=== PATIENT | male | born 1940 | race Caucasian/White ===

== ENCOUNTER 2020-03-18 09:55 | Inpatient (IN) | payer MEDICARE, MEDICAID ==
[~2020-03-18] VITALS: Ht 167.6 cm; Wt 64.9 kg
--- NOTE | 2020-03-18 10:00 | NUR ---
[id number] frm B&C c/o sudden onset chest pain 1 hour ago. asp 325 and nitro x 2 given fire captain. pt c/o lower back pain. bg 88 fire captain. On room air, breathing evenly and unlabored. connected to the monitor and pulse ox. kept comfortable, will continue to monitor accordingly.
[2020-03-18] MEDS ORDERED: HYDROMORPHONE 1 MG/1 ML DISP.SYRIN ONE (10:09)
[2020-03-18] MEDS ORDERED: ONDANSETRON HCL/PF 4 MG/2 ML VIAL ONE (10:09)
[2020-03-18 10:23] LABS: BASOPHILS # (AUTO) 0.1 /CMM (0.0-0.2); BASOPHILS % (AUTO) 1.1 % (0.0-2.0); EOSINOPHILS % (AUTO) 5.6 % (0.0-6.0); HEMATOCRIT 41 % (39-51); HEMOGLOBIN 13.4 g/dL (13.5-17.5); LYMPHOCYTES # (AUTO) 2.1 /CMM (0.8-4.8); LYMPHOCYTES % (AUTO) 30.9 % (20.0-44.0); MEAN CORPUSCULAR HGB CONC 33 g/dl (31.0-36.0); MEAN CORPUSCULAR VOLUME 91 fL (80-96); MONOCYTES # (AUTO) 0.6 /CMM (0.1-1.30); MONOCYTES % (AUTO) 8.6 % (2.0-12.0); NEUTROPHILS # (AUTO) 3.6 /CMM (1.8-8.9); NEUTROPHILS % (AUTO) 53.8 % (43.0-81.0); PLATELET COUNT (AUTO) 209 /CMM (150-450); RED BLOOD CELL COUNT(AUTO) 4.52 MIL/uL (4.5-6.0); WHITE BLOOD COUNT (AUTO) 6.7 K/uL (4.3-11.0)
[2020-03-18] MEDS ORDERED: HYDROMORPHONE INJ 2 MG/ML DISP.SYRIN IV ONE (10:30)
[2020-03-18] MEDS ORDERED: ONDANSETRON HCL/PF 4 MG/2 ML VIAL IVP ONE (10:30)
--- NOTE | 2020-03-18 10:31 | NUR ---
covid 19 swab collected and sent to lab
[2020-03-18] MEDS ORDERED: DONE10TA44 MT (10:41)
[2020-03-18] MEDS ORDERED: GABA300C PO (10:41)
[2020-03-18] MEDS ORDERED: MEMA5TAB42 MT (10:41)
[2020-03-18] MEDS ORDERED: APIX5TAB MT (10:41)
[2020-03-18] MEDS ORDERED: LISI40TA4 MT (10:41)
[2020-03-18 10:48] LABS: CALCIUM, SERUM 8.1 mg/dL (8.5-10.1); CARBON DIOXIDE 23 mmol/L (21-32); CHLORIDE 105 mmol/L (98-107); CREATININE 1.5 mg/dL (0.6-1.3); GLUCOSE 110 mg/dL (74-106); POTASSIUM 3.8 mmol/L (3.5-5.1); SODIUM SERUM 139 mmol/L (136-145); UREA NITROGEN, BLOOD 14 mg/dL (7-18)
[2020-03-18 10:54] LABS: ALANINE AMINOTRANSFERASE 10 U/L (12-78); ALBUMIN 3.1 g/dL (3.4-5.0); ALKALINE PHOSPHATASE 67 U/L (46-116); ASPARTATE AMINOTRANSFERASE 19 U/L (15-37); BILIRUBIN,DIRECT 0.1 mg/dL (0.0-0.2); BILIRUBIN,TOTAL 0.5 mg/dL (0.2-1.0); TOTAL PROTEIN, SERUM 6.9 g/dL (6.4-8.2)
--- NOTE | 2020-03-18 10:58 | NUR ---
PANEL ON-CALL PAGED
[2020-03-18] MEDS ORDERED: ONDANSETRON HCL/PF 4 MG/2 ML VIAL IVP PRN (11:30)
[2020-03-18] MEDS ORDERED: MAGNESIUM HYDROXIDE 30 ML UDC PO PRN (11:30)
[2020-03-18] MEDS ORDERED: ACETAMINOPHEN 325 MG TABLET PO PRN (11:30)
[2020-03-18] MEDS ORDERED: ZOLPIDEM TARTRATE 5 MG TABLET PO PRN (11:30)
--- NOTE | 2020-03-18 11:35 | NUR ---
report given to nurse Thomas for daniel.
[2020-03-18 12:00] VITALS: BP_SYST 175; BP_SYST 183; BP_DIAS 89; BP_DIAS 96
--- NOTE | 2020-03-18 12:00 | NUR ---
tele tumbler drier operator: admission admitted this 79 year old male pt from [facility] with dx: r/o acs. awake, a/ox3, easily irritated and gets emotionally. pt also threatened to leave the hospital if he can't get a back brace right away, informed pt that i will let the hospitalist know about his concerns. oriented to room and surroundings. place pt on tele v pacing, if not pacing sr with inverted t wave=62-66. c/o back pain. denies chest pain. no distress noted. pt more calmer when back was addressed to pmd. emotional support rendered. no skin breakdown noted. will continue to monitor.
[2020-03-18] MEDS: HYDROCODONE/APAP 5/325MG 1 EACH TABLET PO PRN ×3 (12:33→21:01)
--- NOTE | 2020-03-18 12:33 | NUR ---
m/s child health associate: notes c/o 10/10 lower back pain, medicated with norco 1 tab po as ordered. pt able to position self. instructed to call for assistance.
[2020-03-18] MEDS ORDERED: DEXTROSE 50%-WATER 50 ML DISP.SYRIN IV PRN (13:00)
--- NOTE | 2020-03-18 13:33 | NUR ---
m/s top closer: notes pt resting comfortable in bed. voiced no discomfort. instructed to call for assistance.
[2020-03-18 14:00] VITALS: BP 163/78
--- NOTE | 2020-03-18 14:30 | NUR ---
tele photoengraving photographer: notes for ct lumbar via bed at this time.
--- NOTE | 2020-03-18 14:45 | NUR ---
tele record clerk salesperson: notes back from ct to his room. place call light within reach. will continue to monitor.
[2020-03-18] MEDS: LISINOPRIL (20MG) 20 MG TABLET PO SCH (15:39)
[2020-03-18 16:00] VITALS: BP 154/85
--- NOTE | 2020-03-18 16:00 | NUR ---
tele communication assistant: notes resting comfortable in bed. no distress noted. tele if not pacing, sr=60's. will continue to monitor.
[2020-03-18] MEDS: APIXABAN 5 MG TABLET PO SCH (16:24)
[2020-03-18] MEDS: IV NS 0.9% 1,000 ML IV PRN (16:25)
--- NOTE | 2020-03-18 16:42 | NUR ---
tele transport engineer: notes c/o 06/22 lower back pain, medicated with norco 5/325mg 1 tab po as ordered. instructed to call for assistance. will continue to monitor.
[2020-03-18] MEDS ORDERED: APIXABAN 2.5 MG TABLET PO SCH (17:00)
--- NOTE | 2020-03-18 17:00 | NUR ---
tele tape duplicator: notes bs check=95. no s/s of hypo/hyperglycemia reactions noted.
[2020-03-18] MEDS: BLOOD SUGAR DIAGNOSTIC 1 EACH STRIP IN SCH ×2 (17:04→21:30)
--- NOTE | 2020-03-18 17:10 | NUR ---
tele manufacturing applications engineer: notes dinner served. instructed to call for assistance. will continue to monitor.
--- NOTE | 2020-03-18 19:00 | NUR ---
tele non clinical advisor: notes report given to ann-marie (rn) for continuity of care.
[2020-03-18 20:00] VITALS: BP 160/73
[2020-03-18 20:05] VITALS: BP 154/73
[2020-03-18] MEDS ORDERED: HEPARIN SODIUM, PORCINE 5000 UNITS/1 ML VIAL SQ SCH (21:00)
[2020-03-18] MEDS: ATORVASTATIN 10 MG TABLET PO SCH (21:01)
[2020-03-18] MEDS: DONEPEZIL 5 MG TABLET PO SCH (21:01)
[2020-03-19] VITALS (8 sets, daily range): BP systolic 148–207; BP diastolic 65–115
[2020-03-19] MEDS: HYDROCODONE/APAP 5/325MG 1 EACH TABLET PO PRN ×5 (01:01→22:55)
[2020-03-19] MEDS: IV NS 0.9% 1,000 ML IV PRN ×2 (04:23→19:56)
[2020-03-19 06:30] LABS: BASOPHILS # (AUTO) 0.1 /CMM (0.0-0.2); HEMATOCRIT 39 % (39-51); HEMOGLOBIN 12.6 g/dL (13.5-17.5); LYMPHOCYTES # (AUTO) 2.3 /CMM (0.8-4.8); LYMPHOCYTES % (AUTO) 33.9 % (20.0-44.0); MEAN CORPUSCULAR HGB CONC 33 g/dl (31.0-36.0); MEAN CORPUSCULAR VOLUME 90 fL (80-96); MONOCYTES # (AUTO) 0.6 /CMM (0.1-1.30); MONOCYTES % (AUTO) 9.3 % (2.0-12.0); NEUTROPHILS # (AUTO) 3.4 /CMM (1.8-8.9); NEUTROPHILS % (AUTO) 49.8 % (43.0-81.0); PLATELET COUNT (AUTO) 223 /CMM (150-450); RED BLOOD CELL COUNT(AUTO) 4.32 MIL/uL (4.5-6.0); WHITE BLOOD COUNT (AUTO) 6.7 K/uL (4.3-11.0)
[2020-03-19 06:45] LABS: CALCIUM, SERUM 7.6 mg/dL (8.5-10.1); CARBON DIOXIDE 24 mmol/L (21-32); CHLORIDE 106 mmol/L (98-107); CREATININE 1.4 mg/dL (0.6-1.3); GLUCOSE 97 mg/dL (74-106); MAGNESIUM 1.8 mg/dL (1.8-2.4); PHOSPHORUS 2.7 mg/dL (2.5-4.9); POTASSIUM 3.6 mmol/L (3.5-5.1); SODIUM SERUM 138 mmol/L (136-145); UREA NITROGEN, BLOOD 18 mg/dL (7-18)
[2020-03-19 06:48] LABS: CHOLESTEROL 161 mg/dL (<200); HDL CHOLESTEROL 38 mg/dL (40-60); LDL 93 mg/dL (0-99); TRIGLYCERIDES 123 mg/dL (30-150)
--- NOTE | 2020-03-19 06:50 | NUR ---
RN CLOSING NOTE NO ACUTE CHANGES OBSERVED OVERNIGHT. WILL ENDORSE TO MORNING RN FOR CONTINUATION OF CARE.
--- NOTE | 2020-03-19 07:35 | NUR ---
TELE/RN OPENING NOTES RECEIVED PATIENT ON BED WATCHING TV AWAKE ALERT AND ORIENTED X3. DENIES PAIN AT THIS TIME. NO APPARENT RESPIRATORY DISTRESS NOTED. PATIENT WITH TELE MONITOR IN PLACE A PACED SR 60 BPM. IV ACCESS AT THE RIGHT AC # 18 WITH IV FLUID OF NS 1L AT 75 ML/HOUR N AND INFUSING WELL. WILL CONTINUE TO MONITOR.
[2020-03-19] MEDS: BLOOD SUGAR DIAGNOSTIC 1 EACH STRIP IN SCH ×4 (07:58→21:36)
[2020-03-19] MEDS: INSULIN REGULAR, HUMAN 100 UNIT/ML 3 ML VIAL SQ PRN ×3 (07:59→18:07)
[2020-03-19] MEDS: ASPIRIN 81 MG TAB.CHEW PO SCH (08:16)
[2020-03-19] MEDS: LISINOPRIL (20MG) 20 MG TABLET PO SCH (08:17)
[2020-03-19] MEDS: APIXABAN 5 MG TABLET PO SCH ×2 (08:19→16:47)
[2020-03-19 09:46] LABS: THYROID STIMULATING HORMONE 1.567 uIU/mL (0.358-3.74)
--- NOTE | 2020-03-19 10:24 | NUR ---
TELE/RN NOTES PATIENT COMPLAINED OF GENERALIZED PAIN RATED 7/10. NORCO 5/325MG 1 TAB PO WAS GIVEN. WILL CONTINUE TO MONITOR.
[2020-03-19] MEDS: METOPROLOL TARTRATE 50 MG TABLET PO SCH ×2 (12:09→17:42)
--- NOTE | 2020-03-19 14:38 | NUR ---
TELE/RN NOTES PATIENT VTE SCORE 2 JOHN NEGRON IS AWARE. NO ORDER AT THIS TIME. Addendum: 03/19/20 at 1441 by JODY HORVATH RN ERROR WRONG PATIENT
--- NOTE | 2020-03-19 16:04 | NUR ---
TELE/RN NOTES GIVE REPORT TO CATHERINE FOR FLACA.
--- NOTE | 2020-03-19 16:05 | NUR ---
Received report from Ayesha, patient at bed, safety measures [id number], call light within reach, bed in lowest position, will cont to monitor
[2020-03-19] MEDS: MEMANTINE HCL 5 MG TABLET PO SCH (16:47)
[2020-03-19] MEDS: GABAPENTIN 300 MG CAPSULE PO SCH (16:47)
[2020-03-19] MEDS: AMLODIPINE BESYLATE 5 MG TABLET PO SCH (16:49)
--- NOTE | 2020-03-19 18:02 | NUR ---
patient BP is 190/110 measured manually, will notify BOAT CAMP OPERATOR
[2020-03-19] MEDS ORDERED: MORPHINE SULFATE INJ 2 MG/ML DISP.SYRIN IV PRN (18:30)
--- NOTE | 2020-03-19 19:22 | NUR ---
RN CLOSING NOTES Give report to , patient at bed site, resting, last time medicated with Morphine at 1830, still complains about pain level @ 710, comfort needs are met, safety measures provided, call light within reach, endorsed to PM shift RN
--- NOTE | 2020-03-19 20:00 | NUR ---
STATION INSTALLER NOTE PT IN BED WATCHING TV. A/O X 3, NO SOB, NO DISTRESS OR DISCOMFORT NOTED. DENIES PAIN. ON TELE MONITOR 100% A PACING. IVF NS AT 75 ML/HR INFUSING WELL, NO S/S OF INFILTRATION NOTED. KEPT HIM DRY AND CLEAN. ALL NEEDS ATTENDED. SIDE RAILS UP X 2 AND CALL LIGHT WITH IN REACH. CONTINUE TO MONITOR HIM.
[2020-03-19] MEDS: ISOSORBIDE DINITRATE (20MG) 20 MG TABLET PO SCH (20:15)
[2020-03-19] MEDS: DONEPEZIL 5 MG TABLET PO SCH (21:25)
[2020-03-19] MEDS: ATORVASTATIN 10 MG TABLET PO SCH (21:25)
--- NOTE | 2020-03-19 22:55 | NUR ---
ULTRASOUND MANAGER NOTE PT C/O PAIN IN LOWER BACK PAIN 02/20, TOSHIA 1 TAB PO GIVEN. CONTINUE TO MONITOR HIM. Addendum: 03/19/20 at 2346 by FIOR GOMEZ RN PT REFUSED THE MED, STATES I DON'T WANT TAB, I WANT IV SHOT. REMINDED PT IT IS NOT DUE YET. PT REFUSED TO UNDERSTAND.
--- NOTE | 2020-03-19 23:57 | NUR ---
BEHAVIORAL SCIENCE CHAIR NOTE LUIS REVENUE SPECIALIST INFORMED PT IS REFUSING NORCO AND WANT MORPHINE SULFATE INSTEAD. LUIS GAVE NEW ORDER, ORDER NOTED AND CARRIED OUT. GIVEN MORPINE SULFATE 2MG IVP GIVEN FOR PAIN IN LOWER BACK 04/22. CONTINUE TO MONITOR.
[2020-03-20] VITALS (10 sets, daily range): BP systolic 138–196; BP diastolic 76–111
[2020-03-20] MEDS: MORPHINE SULFATE INJ 2 MG/ML DISP.SYRIN IV PRN ×5 (00:11→23:20)
[2020-03-20] MEDS: METOPROLOL TARTRATE 50 MG TABLET PO SCH ×5 (00:23→23:20)
--- NOTE | 2020-03-20 00:30 | NUR ---
TROUBLE SHOOTING MECHANIC NOTE PT IN BED AWAKE. PAIN SUBSIDED 10/23. PT WATCHING TV.
--- NOTE | 2020-03-20 01:11 | NUR ---
SLIP COVER SEAMSTRESS NOTE PT FALL BACK TO SLEEP, NO DISTRESS OR DISCOMFORT NOTED. IVF INFUSING WELL, NO S/S OF INFILTRATION NOTED.
[2020-03-20] MEDS: HYDROCODONE/APAP 5/325MG 1 EACH TABLET PO PRN ×4 (02:37→18:10)
--- NOTE | 2020-03-20 06:24 | NUR ---
HANDLE MAKER NOTE PT IN BED AWAKE. PT C/O PAIN IN LOWER BACK 04/22, MORPHINE SULFATE 2 MG IVP GIVEN. IVF INFUSING WELL, NO S/S OF INFILTRATION NOTED. ON TELE A PACING 100% HR 62. SIDE RAILS UP X 2 AND CALL LIGHT WITHIN REACH. WILL ENDORSE TO DAY SHIFT NURSE FOR CONTINUE TO CARE.
[2020-03-20 06:40] LABS: BASOPHILS # (AUTO) 0.1 /CMM (0.0-0.2); BASOPHILS % (AUTO) 1.1 % (0.0-2.0); EOSINOPHILS % (AUTO) 5.8 % (0.0-6.0); HEMATOCRIT 40 % (39-51); LYMPHOCYTES # (AUTO) 2.1 /CMM (0.8-4.8); LYMPHOCYTES % (AUTO) 28.8 % (20.0-44.0); MEAN CORPUSCULAR HGB CONC 32 g/dl (31.0-36.0); MEAN CORPUSCULAR VOLUME 90 fL (80-96); MONOCYTES # (AUTO) 0.7 /CMM (0.1-1.30); NEUTROPHILS # (AUTO) 4.1 /CMM (1.8-8.9); NEUTROPHILS % (AUTO) 55.3 % (43.0-81.0); PLATELET COUNT (AUTO) 246 /CMM (150-450); WHITE BLOOD COUNT (AUTO) 7.4 K/uL (4.3-11.0)
[2020-03-20 06:51] LABS: CALCIUM, SERUM 7.9 mg/dL (8.5-10.1); CREATININE 1.3 mg/dL (0.6-1.3); POTASSIUM 3.3 mmol/L (3.5-5.1)
[2020-03-20 06:52] LABS: ALBUMIN 3.1 g/dL (3.4-5.0); BILIRUBIN,TOTAL 0.5 mg/dL (0.2-1.0); MAGNESIUM 1.8 mg/dL (1.8-2.4); PHOSPHORUS 2.2 mg/dL (2.5-4.9)
[2020-03-20] MEDS: BLOOD SUGAR DIAGNOSTIC 1 EACH STRIP IN SCH ×4 (07:29→21:42)
--- NOTE | 2020-03-20 07:53 | NUR ---
Tele/RN - Assessment Patient is awake, A/O x 3, stable on room air, afebrile overnight, denies chest pain, tele shows A pacing. Skin is intact. Patient refused accu-check, stated "My blood sugar is fine." Labs reviewed, glucose 98 mg/dL, also noted with potassium 3.3, will notify Md to order replacement. Covid result is still pending. Droplet and contact precautions maintained. Will continue with current medical management.
[2020-03-20] MEDS: AMLODIPINE BESYLATE 5 MG TABLET PO SCH (08:04)
[2020-03-20] MEDS: ASPIRIN 81 MG TAB.CHEW PO SCH (08:04)
[2020-03-20] MEDS: ISOSORBIDE DINITRATE (20MG) 20 MG TABLET PO SCH ×2 (08:05→21:20)
[2020-03-20] MEDS: LISINOPRIL (20MG) 20 MG TABLET PO SCH (08:05)
[2020-03-20] MEDS: MEMANTINE HCL 5 MG TABLET PO SCH ×2 (08:05→16:21)
[2020-03-20] MEDS: GABAPENTIN 300 MG CAPSULE PO SCH ×3 (08:05→16:21)
[2020-03-20] MEDS: APIXABAN 5 MG TABLET PO SCH ×2 (08:06→16:21)
[2020-03-20] MEDS ORDERED: POTASSIUM PHOSPHATE MM 15 MMOL in IV NS 0.9% 250 ML IV SCH (09:30)
[2020-03-20] MEDS: IV NS 0.9% 1,000 ML IV PRN (09:41)
--- NOTE | 2020-03-20 10:00 | NUR ---
Tele/RN - Notes Faith DNP at bedside made aware of elevated BP, pt on multiple BP meds latest BP was 161/82 hr 61, tele showed A pacing 100%, no c/o chest pain or palpitations.
[2020-03-20] MEDS: POTASSIUM PHOSPHATE MM 7.5 MMOL in IV NS 0.9% 100 ML IV SCH ×2 (10:36→13:30)
[2020-03-20 16:40] LABS: CREATININE, URINE 31.9 MG/DL (30.0-125.0); URINE TOTAL PROTEIN 16.9 mg/dL (0-11.9)
[2020-03-20 16:47] LABS: APPEARANCE,URINE CLEAR (CLEAR); BILIRUBIN,URINE NEGATIVE (NEGATIVE); BLOOD, URINE NEGATIVE Ery/uL (NEGATIVE); COLOR,URINE YELLOW (YELLOW); KETONES,URINE NEGATIVE (NEGATIVE); LEUKOCYTE ESTERASE ,URINE NEGATIVE (NEGATIVE); NITRITE, URINE NEGATIVE (NEGATIVE); PH,URINE 7.5 (5.0-8.0); PROTEIN,URINE NEGATIVE (NEGATIVE); UGLUCOSE NEGATIVE (NEGATIVE); UROBILINOGEN,URINE 0.2 EU/dL (0.2)
[2020-03-20 16:51] LABS: EOSINOPHIL,URINE None Seen
--- NOTE | 2020-03-20 18:45 | NUR ---
Tele/RN - End of shift summary Patient afebrile the whole shift, denies chest pain, A. pacing on conference reservationist, without distress, back pain managed by Morphine IVP alt with [place], blood pressure with minimal improvement but patient is happy at this time that it is trending down a little bit, latest BP 159/82 HR 69. Potassium and phosphorus replacement given. All needs attended. Covid result is still pending, continue with droplet and contact precautions. Will endorse to night RN accordingly.
--- NOTE | 2020-03-20 20:00 | NUR ---
FIRE CHIEF NOTE PT IN BED WATCHING TV. A/O X 3, NO SOB, NO DISTRESS OR DISCOMFORT NOTED. DENIES PAIN. ON TELE MONITOR V PACING SINUS 1ST DEGREE BLOCK HR 60. IVF NS AT 75 ML/HR INFUSING WELL, NO S/S OF INFILTRATION NOTED. KEPT HIM DRY AND CLEAN. ALL NEEDS ATTENDED. SIDE RAILS UP X 2 AND CALL LIGHT WITH IN REACH. CONTINUE TO MONITOR HIM
[2020-03-20] MEDS: DONEPEZIL 5 MG TABLET PO SCH (21:19)
[2020-03-20] MEDS: ATORVASTATIN 10 MG TABLET PO SCH (21:19)
--- NOTE | 2020-03-20 23:28 | NUR ---
AIRPORT OPERATIONS SPECIALIST NOTE PT C/O PAIN IN LOWER BACK 04/22, MORPHINE SULFATE 2MG IVP GIVEN. CONTINUE TO MONITOR. IVF INFUSING WELL, NO S/S OF INFILTRATION NOTED.
[2020-03-21] VITALS: BP 186/83
[2020-03-21 04:00] VITALS: BP 184/93
[2020-03-21] MEDS: IV NS 0.9% 1,000 ML IV PRN (05:07)
[2020-03-21] MEDS: METOPROLOL TARTRATE 50 MG TABLET PO SCH ×2 (05:09→12:19)
--- NOTE | 2020-03-21 06:26 | NUR ---
SHUT OFF WORKER NOTE PT IN BED ASLEEP, AROUSABLE. NO DISTRESS OR DISCOMFORT NOTED. DENIES PAIN. ON TELE MONITOR 100% AV PACING HR 62. IVF NS AT 75 ML/HR INFUSING WELL, NO S/S OF INFILTRATION NOTED. KEPT HIM DRY AND CLEAN. ALL NEEDS ATTENDED. SIDE RAILS UP X 2 AND CALL LIGHT WITH IN REACH. CONTINUE TO MONITOR HIM.
[2020-03-21 06:27] LABS: BASOPHILS # (AUTO) 0.1 /CMM (0.0-0.2); BASOPHILS % (AUTO) 0.8 % (0.0-2.0); EOSINOPHILS % (AUTO) 5.9 % (0.0-6.0); HEMATOCRIT 42 % (39-51); LYMPHOCYTES # (AUTO) 2.2 /CMM (0.8-4.8); MEAN CORPUSCULAR HGB CONC 33 g/dl (31.0-36.0); MEAN CORPUSCULAR VOLUME 89 fL (80-96); MONOCYTES # (AUTO) 0.8 /CMM (0.1-1.30); MONOCYTES % (AUTO) 9.3 % (2.0-12.0); NEUTROPHILS # (AUTO) 5.1 /CMM (1.8-8.9); PLATELET COUNT (AUTO) 277 /CMM (150-450); RED BLOOD CELL COUNT(AUTO) 4.73 MIL/uL (4.5-6.0); WHITE BLOOD COUNT (AUTO) 8.7 K/uL (4.3-11.0)
[2020-03-21 07:01] LABS: ALBUMIN 3.3 g/dL (3.4-5.0); BILIRUBIN,TOTAL 0.4 mg/dL (0.2-1.0); CALCIUM, SERUM 8.2 mg/dL (8.5-10.1); CREATININE 1.1 mg/dL (0.6-1.3); MAGNESIUM 1.8 mg/dL (1.8-2.4); PHOSPHORUS 2.8 mg/dL (2.5-4.9); POTASSIUM 3.5 mmol/L (3.5-5.1); TOTAL PROTEIN, SERUM 7.5 g/dL (6.4-8.2)
--- NOTE | 2020-03-21 07:15 | NUR ---
rn opening note Patient in bed, not in acute distress. No s/s of Hypoglycemia noted. IV intact. All needs attended. Safety measures intact. Will cont to monitor
[2020-03-21] MEDS: BLOOD SUGAR DIAGNOSTIC 1 EACH STRIP IN SCH ×2 (07:30→12:00)
[2020-03-21 08:00] VITALS: BP 184/94
[2020-03-21] MEDS: MORPHINE SULFATE INJ 2 MG/ML DISP.SYRIN IV PRN (09:06)
[2020-03-21] MEDS: GABAPENTIN 300 MG CAPSULE PO SCH ×2 (09:07→12:20)
[2020-03-21] MEDS: hydrALAZINE HCL 50 MG TABLET PO SCH ×2 (09:07→12:20)
[2020-03-21] MEDS: ISOSORBIDE DINITRATE (20MG) 20 MG TABLET PO SCH (09:08)
[2020-03-21] MEDS: MEMANTINE HCL 5 MG TABLET PO SCH (09:08)
[2020-03-21] MEDS: ASPIRIN 81 MG TAB.CHEW PO SCH (09:08)
[2020-03-21] MEDS: AMLODIPINE BESYLATE 5 MG TABLET PO SCH (09:09)
[2020-03-21] MEDS: APIXABAN 5 MG TABLET PO SCH (09:13)
[2020-03-21] MEDS: LISINOPRIL (20MG) 20 MG TABLET PO SCH (09:17)
[2020-03-21] MEDS: INSULIN REGULAR, HUMAN 100 UNIT/ML 3 ML VIAL SQ PRN (09:21)
[2020-03-21] MEDS ORDERED: IOHEXOL-350 100 ML VIAL IV ONE (09:59)
[2020-03-21] MEDS ORDERED: IV NS 0.9% 250 ML IV ONE (09:59)
[2020-03-21] MEDS ORDERED: LISI-603 PO (11:34)
[2020-03-21] MEDS ORDERED: HYDR-4077 PO (11:34)
[2020-03-21] MEDS ORDERED: ISOS20TA8 PO (11:34)
[2020-03-21] MEDS ORDERED: ATOR10TA PO (11:34)
[2020-03-21] MEDS ORDERED: METO50TA16 PO (11:34)
[2020-03-21 12:00] VITALS: BP 157/72
--- NOTE | 2020-03-21 12:00 | NUR ---
Patient refused blood sugar check and his lunch. New order for CT Angiogram, patient refused. made aware. Denies any pain or discomfort. IV intact and infusing with Normal Saline at 75/ml. Paced on the monitor.All needs attended. Safety measures intact. Will cont to monitor
--- NOTE | 2020-03-21 14:41 | NUR ---
patient in bed, not in acute distress. Waiting for ambulance to be picked up for transfer to [facility]. Report given to receiving nurse JUAN R Spence.
[2020-03-21 16:00] VITALS: BP 155/77
--- NOTE | 2020-03-21 16:10 | NUR ---
Patient left to [facility] in stable condition via ambulance. All belongings and medications sent with the patient
== END 2020-03-21 16:07 | DRG 304 ==
LOC: ER 10:01 → TELE-TD 11:37 → TELE1 11:42
PROVIDERS: ADMIT Nurse Practitioner Acute Care; ATTEND Nurse Practitioner Acute Care
DX: I16.9 Hypertensive crisis, unspecified (principal); N17.0 Acute kidney failure with tubular necrosis; D68.69 Other thrombophilia; E44.1 Mild protein-calorie malnutrition; E11.9 Type 2 diabetes mellitus without complications; I25.10 Atherosclerotic heart disease of native coronary artery without angina pectoris; G89.29 Other chronic pain; I10 Essential (primary) hypertension; Z95.1 Presence of aortocoronary bypass graft; E88.09 Other disorders of plasma-protein metabolism, not elsewhere classified; Z68.23 Body mass index [BMI] 23.0-23.9, adult; Z95.0 Presence of cardiac pacemaker; E87.6 Hypokalemia; E83.39 Other disorders of phosphorus metabolism; W19.XXXA Unspecified fall, initial encounter; Y93.89 Activity, other specified; Y92.89 Other specified places as the place of occurrence of the external cause; Z79.01 Long term (current) use of anticoagulants
CPT/HCPCS: 36415; 71045-TC; 72131-TC; 80048-TC; 80053-TC; 80061-TC; 80076-TC; 81000-TC; 82570-TC; 82962-TC; 83735-TC; 84100-TC; 84155-TC; 84300-TC; 84439-TC; 84443-TC; 84484-TC; 85025-TC; 87081-TC; 93307-TC; 97112-TC; 97530-TC; G0378; J1170; J1815; J2270; J2405; J3490; J7030; J7050; Q9967; U0003-CS